=== PATIENT | female | born 1965 | race Caucasian/White ===

== ENCOUNTER → 2017-03-08 | Outpatient (CLI) | payer OTHER ==
[~2017-03-08] MED LIST: ASPIR LOW81 MG PO; ATARAX10 MG/5 ML PO; CLINDAMYCIN HC300 MG PO; FLEXERIL10 MG PO; FLUONAZOLE100 M1 PO; HYDROCODONE BIT1 T11 PO; MOTRIN800 MG PO; NKHM; NYSTATIN1 EAC1 MC; PRELONE15 MG/5 ML PO; VICODIN 5/500 505 MG PO
[2017-03-08 08:30] LABS: HEMATOCRIT 42.8 % (37.0-47.0); HEMOGLOBIN 14.2 g/dl (12.0-16.0); MEAN CELL VOLUME 90.9 fl (81.0-99.0); MEAN CORPUSCULAR HGB 30.1 pg (27.0-31.0); MEAN CORPUSCULAR HGB CONC 33.2 g/dl (33.0-37.0); MEAN PLATELET VOLUME 9.5 fl (9.6-12.3); RED BLOOD COUNT 4.71 10*6/uL (4.10-5.10); RED CELL DISTRI WIDTH 13.3 % (0-14.5); WHITE BLOOD COUNT 7.5 10*3/uL (4.8-10.8)
[2017-03-08 08:55] LABS: ALBUMIN 3.9 gm/dl (3.1-4.5); BUN 21 mg/dl (7-24); CARBON DIOXIDE 25 mmol/L (21-32); CHLORIDE 108 mmol/L (98-107); CHOLESTEROL 165 mg/dL (<200); EST GLOM FILT AFRICAN AMERICAN > 60 ml/min; GLUCOSE 106 mg/dL (65-99); POTASSIUM 3.8 mmol/L (3.5-5.1); SGOT/AST 25 IU/L (3-35); SGPT/ALT 31 U/L (12-78); SODIUM 140 mmol/L (136-145); TRIGLYCERIDES 113 mg/dl (<150); VLDL CHOLESTEROL 23 mg/dL (6-40)
[2017-03-08 08:57] LABS: ALKALINE PHOSPHATASE 146 U/L (45-117); BILIRUBIN, TOTAL 0.4 mg/dl (0.2-1.0); HDL CHOLESTEROL 56 mg/dl (40-60); LDL CHOLESTEROL 86 mg/dL (9-159); TOTAL PROTEIN 7.7 gm/dL (6.4-8.2)
== END | disposition home or self-care (01) ==
LOC: LAB 08:10
PROVIDERS: Family Medicine
DX: E78.00 Pure hypercholesterolemia, unspecified (principal); M25.562 Pain in left knee; R53.83 Other fatigue; R05 Cough; E55.9 Vitamin D deficiency, unspecified; R06.02 Shortness of breath; R07.89 Other chest pain; F17.200 Nicotine dependence, unspecified, uncomplicated; M25.462 Effusion, left knee; M54.9 Dorsalgia, unspecified

== ENCOUNTER 2017-07-13 10:17 | Emergency (ER) | payer SELFPAY ==
[~2017-07-13] VITALS: Ht 175.2 cm; Wt 90.7 kg
[2017-07-13 10:58] LABS: BASO % 0.6 % (0.0-1.0); EOS # 0.2 10*3/uL (0.0-0.4); EOS % 2.4 % (1.0-4.0); HEMATOCRIT 46.3 % (37.0-47.0); HEMOGLOBIN 15.5 g/dl (12.0-16.0); LYMPH # 2.3 10*3/uL (1.3-4.4); MEAN CELL VOLUME 90.4 fl (81.0-99.0); MEAN CORPUSCULAR HGB 30.3 pg (27.0-31.0); MEAN CORPUSCULAR HGB CONC 33.5 g/dl (33.0-37.0); MEAN PLATELET VOLUME 10.1 fl (9.6-12.3); MONO # 0.6 10*3/uL (0.1-1.0); MONO % 8.3 % (3.0-9.0); NEUT % 56.3 % (47.0-73.0); PLATELET COUNT AUTOMATED 116 10*3/uL (130-400); RED BLOOD COUNT 5.12 10*6/uL (4.10-5.10); RED CELL DISTRI WIDTH 13.6 % (0-14.5); WHITE BLOOD COUNT 7.1 10*3/uL (4.8-10.8)
[2017-07-13 11:09] LABS: BUN 16 mg/dl (7-24); CHLORIDE 109 mmol/L (98-107); CREATININE 0.99 mg/dL (0.55-1.02); POTASSIUM 3.9 mmol/L (3.5-5.1); SODIUM 140 mmol/L (136-145)
[2017-07-13] MEDS ORDERED: PRINIVIL10 MG PO (12:54)
== END 2017-07-13 14:50 | disposition home or self-care (01) ==
LOC: EDSTATUS 10:17 → ED 10:17
PROVIDERS: Emergency Medicine
DX: M25.562 Pain in left knee (principal); I10 Essential (primary) hypertension; F17.200 Nicotine dependence, unspecified, uncomplicated; Z98.51 Tubal ligation status; Z90.49 Acquired absence of other specified parts of digestive tract; Z98.890 Other specified postprocedural states; Z79.82 Long term (current) use of aspirin; Z88.1 Allergy status to other antibiotic agents; Z88.8 Allergy status to other drugs, medicaments and biological substances

== ENCOUNTER 2017-07-20 02:43 | Inpatient (IN) | payer SELFPAY ==
[~2017-07-20] VITALS: Ht 175.2 cm; Wt 93.2 kg
[~2017-07-20 02:43] MED LIST changes: +PRINIVIL10 MG PO
[2017-07-20 11:14] VITALS: BP 146/90
--- NOTE | 2017-07-20 11:30 | NUR ---
NATALIA DOS SANTOS CALLED AND AWARE PT IN ROOM AND WILL BE UP TO SEE HER.
[2017-07-20 11:51] VITALS: BP 146/90
--- NOTE | 2017-07-20 11:57 | NUR ---
NATALIA DOS SANTOS IN TO SEE PT.
--- NOTE | 2017-07-20 12:29 | NUR ---
PATIENT IS RESTING COMFORTABLY IN BED. PATIENT WAS PLEASANT AND COOPERATIVE UPON ASSESSMENT. PATIENT DENIES AND SOB OR N/V/D. PATIENT DOES HAVE COMPLAINT OF HEADACHE AND LEFT LEG PAIN. PATIENT GIVEN ACETIMINOPHEN 325MG. WILL CONTINUE TO MONITOR AND REASSESS PATIENTS PAIN. SEE SHIFT ASSESSMENT.
--- NOTE | 2017-07-20 12:38 | NUR ---
PT C/O HEADACHE RATES PAIN 9 ON PAIN SCALE 0-10. MEDICATED WITH NORCO PO PER PRN ORDER, SEE EMAR. CALL LIGHT IN REACH.
[2017-07-20 14:10] LABS: BASO # 0.1 10*3/uL (0.0-0.1); BASO % 0.6 % (0.0-1.0); EOS # 0.2 10*3/uL (0.0-0.4); EOS % 2.1 % (1.0-4.0); HEMATOCRIT 44.1 % (37.0-47.0); HEMOGLOBIN 14.6 g/dl (12.0-16.0); LYMPH # 2.7 10*3/uL (1.3-4.4); LYMPH % 33.5 % (27.0-41.0); MEAN CELL VOLUME 91.9 fl (81.0-99.0); MEAN CORPUSCULAR HGB 30.4 pg (27.0-31.0); MEAN CORPUSCULAR HGB CONC 33.1 g/dl (33.0-37.0); MEAN PLATELET VOLUME 10.2 fl (9.6-12.3); MONO # 0.7 10*3/uL (0.1-1.0); MONO % 8.1 % (3.0-9.0); NEUT # 4.5 10*3/uL (2.3-7.9); NEUT % 55.6 % (47.0-73.0); PLATELET COUNT AUTOMATED 127 10*3/uL (130-400); RED CELL DISTRI WIDTH 13.5 % (0-14.5); WHITE BLOOD COUNT 8.1 10*3/uL (4.8-10.8)
[2017-07-20 14:34] LABS: ALBUMIN 3.7 gm/dl (3.1-4.5); ALKALINE PHOSPHATASE 138 U/L (45-117); BUN 16 mg/dl (7-24); CHLORIDE 107 mmol/L (98-107); CREATININE 0.95 mg/dL (0.55-1.02); MAGNESIUM 2.5 mg/dL (1.5-2.1); PHOSPHOROUS 3.3 mg/dL (2.5-4.9); POTASSIUM 4.4 mmol/L (3.5-5.1); SGOT/AST 26 IU/L (3-35); SGPT/ALT 29 U/L (12-78); SODIUM 139 mmol/L (136-145); TOTAL PROTEIN 7.5 gm/dL (6.4-8.2)
[2017-07-20 14:40] LABS: TROPONIN I < 0.015 ng/ml (<0.045)
[2017-07-20 14:49] LABS: ACT PARTIAL THROMBO TIME 25.8 SECONDS (20.8-31.5)
--- NOTE | 2017-07-20 15:23 | NUR ---
NOTIFIED LANDSCAPE ARCHITECTURE PROFESSOR FOR FOR CONSULT ON PATIENT FOR LEFT KNEE EFFUSION.
--- NOTE | 2017-07-20 15:23 | NUR ---
DANIELLE LESLIE REGARDING CONSULT FOR DR. MORENO, SHE WILL NOTIFY HIM
--- NOTE | 2017-07-20 15:30 | NUR ---
NOT AVAILABLE FOR ECHO. OFF THE FLOOR FOR OTHER OTHER TESTING.
--- NOTE | 2017-07-20 15:52 | NUR ---
PATIENT IS SITTING UP IN BED. PATIENT HAS HAD PAIN IN THE LEFT LEG THAT EXACERBATES WITH MOVEMENT, BUT HAS NO DISCOMFORT OR PAIN AT THIS TIME. PATIENT WAS COOPERATIVE UPON ASSESSMENT. SEE SHIFT ASSESSMENT.
[2017-07-20 16:00] VITALS: BP 155/96
--- NOTE | 2017-07-20 18:48 | NUR ---
PATIENT IS RESTING IN BED. PATIENT IS STILL HAVING A HEADACHE. JOSH WAS IN TO SEE PATIENT AND PERFORMED A KNEE ASPIRATION. PATIENT HAS A PAIN LEVEL OF 6/10 AND IS GIVEN NORCO PER PATIENT REQUEST. WILL CONTINUE TO MONITOR PATIENT AND REASSESS. SEE SHIFT ASSESSMENT. CALL LIGHT IS WITHIN REACH.
[2017-07-20 19:20] VITALS: BP 122/84
--- NOTE | 2017-07-20 19:23 | NUR ---
PT C/O HEADACHE, RATES PAIN 6 ON PAIN SCALE 0-10. MEDICATED WITH NORCO PO PER PRN ORDER, SEE EMAR. BP 122/84. TOLERATED MEDICATIONS. CALL LIGHT IN REACH.
[2017-07-20 20:00] VITALS: BP 147/76
--- NOTE | 2017-07-20 20:02 | NUR ---
Shift chart check completed.
[2017-07-21] VITALS: BP 115/74
[2017-07-21 06:09] LABS: BASO % 0.5 % (0.0-1.0); EOS # 0.2 10*3/uL (0.0-0.4); EOS % 3.3 % (1.0-4.0); HEMATOCRIT 44.5 % (37.0-47.0); HEMOGLOBIN 14.6 g/dl (12.0-16.0); LYMPH % 32.9 % (27.0-41.0); MEAN CELL VOLUME 92.5 fl (81.0-99.0); MEAN CORPUSCULAR HGB 30.4 pg (27.0-31.0); MEAN CORPUSCULAR HGB CONC 32.8 g/dl (33.0-37.0); MEAN PLATELET VOLUME 9.8 fl (9.6-12.3); MONO # 0.6 10*3/uL (0.1-1.0); MONO % 9.3 % (3.0-9.0); NEUT # 3.3 10*3/uL (2.3-7.9); NEUT % 53.7 % (47.0-73.0); PLATELET COUNT AUTOMATED 124 10*3/uL (130-400); RED BLOOD COUNT 4.81 10*6/uL (4.10-5.10); RED CELL DISTRI WIDTH 13.7 % (0-14.5); WHITE BLOOD COUNT 6.1 10*3/uL (4.8-10.8)
--- NOTE | 2017-07-21 06:21 | NUR ---
PRN NORCO GIVEN FOR HEADACHE PAIN RATED 8/10. WILL MONITOR.
[2017-07-21 06:39] LABS: ALBUMIN 3.5 gm/dl (3.1-4.5); ALKALINE PHOSPHATASE 132 U/L (45-117); BUN 16 mg/dl (7-24); CHLORIDE 107 mmol/L (98-107); CHOLESTEROL 182 mg/dL (<200); CREATININE 0.94 mg/dL (0.55-1.02); FREE T4 1.16 ng/dl (0.76-1.46); HDL CHOLESTEROL 45 mg/dl (40-60); LDL CHOLESTEROL 108 mg/dL (9-159); POTASSIUM 4.2 mmol/L (3.5-5.1); SGOT/AST 28 IU/L (3-35); SGPT/ALT 32 U/L (12-78); SODIUM 141 mmol/L (136-145); TOTAL PROTEIN 7.2 gm/dL (6.4-8.2); TRIGLYCERIDES 143 mg/dl (<150); VLDL CHOLESTEROL 29 mg/dL (6-40)
--- NOTE | 2017-07-21 06:52 | NUR ---
NORCO EFFECTIVE. PATIENT IS SATISFIED AND RATES PAIN AT A 3/10.
[2017-07-21 08:00] VITALS: BP 112/74
--- NOTE | 2017-07-21 09:00 | NUR ---
Radiographer in to talk to patient. Patient states lives at home with family. There are few steps in the home. Physician: resident clinic Pharmacy: none Home health services: none Patient's level of ADLs: INDEPENDENT Patient has working utilities: all working DME: none Follow-up physician's appointment after d/c: will be made by hospitalist nurse director upon discharge Does patient want to access PORTAL?: no Discharge plan discussed with patient, patient lives at home with family, she is independent in adls and ambulation, patient states she will be going home and denies any home needs. discussed with her not having any insurance and that someone from [facility] will be calling her and sending a form to fill out for help with the hospital stay. patient stated she would fill it out and send it back, patient also stated that she was fine paying for medications as long as they were only a few dollars. SHARONDA CRONIN
--- NOTE | 2017-07-21 13:10 | NUR ---
PT TRASPORTED FROM FLOOR TO RADIOLOGY FOR AN MRI.
--- NOTE | 2017-07-21 15:50 | NUR ---
PATIENT AMBULATED OFF FLOOR WITH FAMILY.
--- NOTE | 2017-07-21 15:50 | NUR ---
Discharge instructions reviewed with patient/family. Patient receptive and verbalizes understanding. Follow-up care arranged. Written instructions given to patient/family. GOMEZ PEARSON
[2017-07-21 16:00] VITALS: BP 128/80
[2017-07-21] MEDS ORDERED: HYDR25T PO (16:19)
[2017-07-21] MEDS ORDERED: LISINOPRIL20 MG PO (16:19)
== END 2017-07-21 15:50 | disposition home or self-care (01) | DRG 565 ==
LOC: RESCLI 02:43 → 4E 11:02
PROVIDERS: Registered Nurse; ADMIT Internal Medicine
PROC: 0S9D3ZX Drainage of Left Knee Joint, Percutaneous Approach, Diagnostic (ICD-10-PCS; principal; 2017-07-20)
DX: M25.462 Effusion, left knee (principal); I16.1 Hypertensive emergency; I10 Essential (primary) hypertension; Z72.0 Tobacco use; Z90.49 Acquired absence of other specified parts of digestive tract; Z88.1 Allergy status to other antibiotic agents; Z88.8 Allergy status to other drugs, medicaments and biological substances; Z71.6 Tobacco abuse counseling

== ENCOUNTER → 2017-08-10 | Outpatient (CLI) | payer SELFPAY ==
[~2017-08-10] MED LIST changes: +HYDR25T PO; +LISINOPRIL20 MG PO
== END | disposition home or self-care (01) ==
LOC: RESCLI 01:27
DX: I10 Essential (primary) hypertension (principal); M71.22 Synovial cyst of popliteal space [Baker], left knee; M17.12 Unilateral primary osteoarthritis, left knee; F17.200 Nicotine dependence, unspecified, uncomplicated; Z88.1 Allergy status to other antibiotic agents

== ENCOUNTER 2017-09-10 14:35 | Emergency (ER) | payer OTHER ==
[~2017-09-10] VITALS: Ht 177.8 cm; Wt 89.8 kg
[2017-09-10 15:30] LABS: BASO % 0.1 % (0.0-1.0); EOS % 0.1 % (1.0-4.0); HEMATOCRIT 46.4 % (37.0-47.0); LYMPH # 1.8 10*3/uL (1.3-4.4); LYMPH % 12.1 % (27.0-41.0); MEAN CELL VOLUME 87.5 fl (81.0-99.0); MEAN CORPUSCULAR HGB 30.2 pg (27.0-31.0); MEAN CORPUSCULAR HGB CONC 34.5 g/dl (33.0-37.0); MEAN PLATELET VOLUME 10.5 fl (9.6-12.3); MONO # 1.2 10*3/uL (0.1-1.0); MONO % 8.5 % (3.0-9.0); NEUT # 11.4 10*3/uL (2.3-7.9); NEUT % 78.7 % (47.0-73.0); PLATELET COUNT AUTOMATED 170 10*3/uL (130-400); RED CELL DISTRI WIDTH 13.7 % (0-14.5); WHITE BLOOD COUNT 14.5 10*3/uL (4.8-10.8)
[2017-09-10 15:45] LABS: ALBUMIN 4.1 gm/dl (3.1-4.5); CREATININE 1.27 mg/dL (0.55-1.02); POTASSIUM 3.9 mmol/L (3.5-5.1); TOTAL PROTEIN 8.5 gm/dL (6.4-8.2)
[2017-09-10 16:20] LABS: BILIRUBIN NEGATIVE (NEGATIVE); BLOOD TRACE-LYSED (NEGATIVE); CLARITY CLEAR (CLEAR); COLOR YELLOW (YELLOW); GLUCOSE NEGATIVE (NEGATIVE); KETONE NEGATIVE (NEGATIVE); LEUKO ESTERASE NEGATIVE (NEGATIVE); NITRITE NEGATIVE (NEGATIVE); SPECIFIC GRAVITY 1.015 (1.005-1.030); UROBILINOGEN 0.2 E.U./dl (0.2-1.0)
[2017-09-10 16:31] LABS: RBC 0-2 rbc/hpf (0-2)
[2017-09-10 16:32] LABS: BACTERIA TRACE
[2017-09-10] MEDS ORDERED: ZOFRAN4 MG PO (17:03)
[2017-09-10] MEDS ORDERED: PHENERGAN25 M3 PO (17:03)
== END 2017-09-10 17:10 | disposition home or self-care (01) ==
LOC: ED 14:35
PROVIDERS: Nurse Practitioner Family
DX: K52.9 Noninfective gastroenteritis and colitis, unspecified (principal); N28.9 Disorder of kidney and ureter, unspecified; I10 Essential (primary) hypertension; F17.200 Nicotine dependence, unspecified, uncomplicated; Z90.710 Acquired absence of both cervix and uterus; Z98.890 Other specified postprocedural states; Z98.51 Tubal ligation status; Z90.49 Acquired absence of other specified parts of digestive tract; Z79.899 Other long term (current) drug therapy; Z88.1 Allergy status to other antibiotic agents; Z88.8 Allergy status to other drugs, medicaments and biological substances

== ENCOUNTER → 2017-10-25 | Outpatient (CLI) | payer OTHER ==
[~2017-10-25] MED LIST changes: +PHENERGAN25 M3 PO; +ZOFRAN4 MG PO
== END | disposition home or self-care (01) ==
LOC: ORTHO 02:05
DX: M25.562 Pain in left knee (principal)

== ENCOUNTER → 2017-11-24 | Day surgery (SDC) | payer OTHER ==
[~2017-11-24] VITALS: Ht 175.2 cm; Wt 89.8 kg
[~2017-11-24] MED LIST changes: +Zestril,Prinivi40 MG PO
[2017-11-24 12:00] VITALS: BP 159/95
[2017-11-24 13:10] VITALS: BP 125/65
[2017-11-24 13:25] VITALS: BP 133/74
[2017-11-24 13:40] VITALS: BP 147/79
[2017-11-24 14:03] VITALS: BP 111/47
[2017-11-24 14:15] VITALS: BP 101/50
== END | disposition home or self-care (01) ==
LOC: SDC 11-19 01:58
DX: I35.1 Nonrheumatic aortic (valve) insufficiency (principal); I10 Essential (primary) hypertension; Z90.49 Acquired absence of other specified parts of digestive tract; Z90.710 Acquired absence of both cervix and uterus; Z98.890 Other specified postprocedural states; F17.210 Nicotine dependence, cigarettes, uncomplicated; Z88.8 Allergy status to other drugs, medicaments and biological substances

== ENCOUNTER → 2018-02-15 | Outpatient (CLI) | payer OTHER ==
[~2018-02-15] MED LIST changes: +NORVASC5 MG PO; +TOPROL XL100 MG PO
--- NOTE | ~2018-02-15 | ST ---
[place], [place] EXERCISE STRESS TEST REPORT NAME: BEATRIZ CURIEL UNIT #: [id number] ROOM: DOCTOR: TERRIE POTTER MD BIRTHDATE: [birth year] DOS: 02/15/2018 PHARMACOLOGIC STRESS TEST INDICATIONS: Precordial chest pain. PROCEDURE: The patient was given a rapid infusion of regadenoson 0.4 mg intravenously followed by a saline flush. She developed severe dyspnea shortly after the infusion. She denied any headache or nausea. She did have a normal heart rate response to the adenosine. Her resting heart rate of 83 genaro to 120. Resting blood pressure of 150/80 genaro to 168/90. She did not have any diagnostic ST or T-wave changes with the infusion. Forty seconds after the infusion of regadenoson, she was given radionuclide intravenously. IMPRESSION: 1. Well tolerated infusion of regadenoson. 2. Radionuclide injected. Please see the separate imaging report for further details of the patient's stress test results. TERRIE POTTER MD CM:STRESS:EXERCISE STRESS TEST REPORT [id number] TERRIE POTTER MD
== END | disposition home or self-care (01) ==
LOC: CARD 01:41
DX: I10 Essential (primary) hypertension (principal); R07.2 Precordial pain; I35.1 Nonrheumatic aortic (valve) insufficiency

== ENCOUNTER 2018-12-05 12:30 | Emergency (ER) | payer SELFPAY ==
[~2018-12-05] VITALS: Ht 175.2 cm; Wt 88.5 kg
== END 2018-12-05 14:09 | disposition home or self-care (01) ==
LOC: ED 12:30
DX: S89.92XA Unspecified injury of left lower leg, initial encounter (principal); I10 Essential (primary) hypertension; F17.210 Nicotine dependence, cigarettes, uncomplicated; Z88.1 Allergy status to other antibiotic agents; Z79.899 Other long term (current) drug therapy; X50.1XXA Overexertion from prolonged static or awkward postures, initial encounter; Y93.89 Activity, other specified; Y92.89 Other specified places as the place of occurrence of the external cause; Y99.8 Other external cause status

== ENCOUNTER 2018-12-22 15:37 | Emergency (ER) | payer SELFPAY ==
[~2018-12-22] VITALS: Ht 175.2 cm; Wt 88.5 kg
== END 2018-12-22 16:14 | disposition home or self-care (01) ==
LOC: ED 15:37
DX: M25.562 Pain in left knee (principal); M79.89 Other specified soft tissue disorders; I10 Essential (primary) hypertension; Z53.21 Procedure and treatment not carried out due to patient leaving prior to being seen by health care provider

== ENCOUNTER → 2018-12-22 | Outpatient (CLI) | payer SELFPAY | END | disposition home or self-care (01) | LOC: RESCLI 03:27 | DX: I48.0 Paroxysmal atrial fibrillation (principal); L30.4 Erythema intertrigo; F41.9 Anxiety disorder, unspecified; E11.9 Type 2 diabetes mellitus without complications; I47.1 Supraventricular tachycardia; I10 Essential (primary) hypertension; K21.9 Gastro-esophageal reflux disease without esophagitis; E55.9 Vitamin D deficiency, unspecified; Z98.890 Other specified postprocedural states; Z86.79 Personal history of other diseases of the circulatory system; Z79.899 Other long term (current) drug therapy; Z79.82 Long term (current) use of aspirin; Z88.8 Allergy status to other drugs, medicaments and biological substances ==

== ENCOUNTER → 2020-04-02 | Outpatient (CLI) | payer OTHER | END | disposition home or self-care (01) | LOC: CARD 12:46 | DX: I35.1 Nonrheumatic aortic (valve) insufficiency (principal); I70.0 Atherosclerosis of aorta ==

== ENCOUNTER → 2020-08-02 | Outpatient (CLI) | payer OTHER ==
[~2020-08-02] MED LIST changes: +LISINOPRIL40 MG PO; +TOPROL XL25 MG PO
[2020-08-02 16:31] LABS: BUN 34 mg/dl (7-24); CHLORIDE 110 mmol/L (98-107); CREATININE 0.97 mg/dL (0.55-1.02); POTASSIUM 4.3 mmol/L (3.5-5.1); SODIUM 139 mmol/L (136-145)
== END | disposition home or self-care (01) ==
LOC: LAB 14:06
PROVIDERS: ATTEND Orthopaedic Surgery
DX: I51.7 Cardiomegaly (principal); G56.22 Lesion of ulnar nerve, left upper limb; G56.02 Carpal tunnel syndrome, left upper limb

== ENCOUNTER → 2020-08-05 | Outpatient (CLI) | payer OTHER | END | disposition home or self-care (01) | LOC: COVID19 00:49 | PROVIDERS: ATTEND Orthopaedic Surgery | DX: Z01.812 Encounter for preprocedural laboratory examination (principal); Z20.828 Contact with and (suspected) exposure to other viral communicable diseases ==

== ENCOUNTER → 2020-08-08 | Day surgery (SDC) | payer OTHER ==
[2020-08-02 14:22] VITALS: BP 209/89
[2020-08-08] VITALS (7 sets, daily range): BP systolic 108–208; BP diastolic 85–94
[~2020-08-08] VITALS: Ht 175.2 cm; Wt 86.2 kg
== END ==
LOC: SDC 08-02 14:00
PROVIDERS: ATTEND Orthopaedic Surgery
DX: G56.03 Carpal tunnel syndrome, bilateral upper limbs (principal); G56.23 Lesion of ulnar nerve, bilateral upper limbs; I10 Essential (primary) hypertension; F17.200 Nicotine dependence, unspecified, uncomplicated; G43.909 Migraine, unspecified, not intractable, without status migrainosus; Z90.49 Acquired absence of other specified parts of digestive tract; Z90.710 Acquired absence of both cervix and uterus; Z98.51 Tubal ligation status; F17.210 Nicotine dependence, cigarettes, uncomplicated; Z88.1 Allergy status to other antibiotic agents; Z88.8 Allergy status to other drugs, medicaments and biological substances; Z79.899 Other long term (current) drug therapy

== ENCOUNTER → 2020-12-16 | Outpatient (CLI) | payer OTHER ==
[~2020-12-16] MED LIST changes: +HYDROCODONE-AC1 EAC1 PO
[2020-12-16 11:59] LABS: BUN 18 mg/dl (7-24); CHLORIDE 111 mmol/L (98-107); CREATININE 0.96 mg/dL (0.55-1.02); POTASSIUM 3.7 mmol/L (3.5-5.1); SODIUM 141 mmol/L (136-145)
== END | disposition home or self-care (01) ==
LOC: COVID19 11:09 → LAB 11:09
PROVIDERS: ATTEND Orthopaedic Surgery
DX: Z01.812 Encounter for preprocedural laboratory examination (principal); G56.01 Carpal tunnel syndrome, right upper limb; G56.21 Lesion of ulnar nerve, right upper limb; Z20.822 Contact with and (suspected) exposure to COVID-19

== ENCOUNTER → 2020-12-19 | Day surgery (SDC) | payer OTHER ==
[2020-12-19 07:15] VITALS: BP 188/101
[2020-12-19 09:32] VITALS: BP 139/65
[2020-12-19 09:47] VITALS: BP 136/60
[2020-12-19 10:02] VITALS: BP 125/68
== END ==
LOC: SDC 12-16 11:00
PROVIDERS: ATTEND Orthopaedic Surgery
DX: G56.01 Carpal tunnel syndrome, right upper limb (principal); G56.21 Lesion of ulnar nerve, right upper limb; I10 Essential (primary) hypertension; G43.909 Migraine, unspecified, not intractable, without status migrainosus; F17.210 Nicotine dependence, cigarettes, uncomplicated; Z90.49 Acquired absence of other specified parts of digestive tract; Z98.890 Other specified postprocedural states; Z79.899 Other long term (current) drug therapy

== ENCOUNTER 2021-06-04 17:17 | Inpatient (IN) | payer OTHER ==
[2021-06-04 19:00] LABS: ALBUMIN 3.6 gm/dl (3.1-4.5); ALKALINE PHOSPHATASE 153 U/L (45-117); BUN 18 mg/dl (7-24); CHLORIDE 108 mmol/L (98-107); CREATININE 1.08 mg/dL (0.55-1.02); POTASSIUM 3.7 mmol/L (3.5-5.1); SGOT/AST 22 IU/L (3-35); SGPT/ALT 23 U/L (12-78); SODIUM 139 mmol/L (136-145); TOTAL PROTEIN 8.1 gm/dL (6.4-8.2); TROPONIN I 0.017 ng/ml (<0.045)
[2021-06-04 19:20] LABS: BASO # 0.1 10*3/uL (0.0-0.1); BASO % 0.6 % (0.0-1.0); EOS # 0.2 10*3/uL (0.0-0.4); EOS % 2.7 % (1.0-4.0); HEMATOCRIT 48.3 % (37.0-47.0); LYMPH % 23.9 % (27.0-41.0); MEAN CELL VOLUME 85.6 fl (81.0-99.0); MEAN CORPUSCULAR HGB CONC 32.7 g/dl (33.0-37.0); MEAN PLATELET VOLUME 10.8 fl (9.6-12.3); MONO # 0.6 10*3/uL (0.1-1.0); MONO % 7.8 % (3.0-9.0); NEUT # 5.3 10*3/uL (2.3-7.9); NEUT % 64.8 % (47.0-73.0); PLATELET COUNT AUTOMATED 92 10*3/uL (130-400); RED BLOOD COUNT 5.64 10*6/uL (4.10-5.10); RED CELL DISTRI WIDTH 14.4 % (0-14.5); WHITE BLOOD COUNT 8.2 10*3/uL (4.8-10.8)
[2021-06-05] VITALS (14 sets, daily range): BP systolic 143–193; BP diastolic 90–115
[2021-06-05 04:16] LABS: BASO % 0.6 % (0.0-1.0); EOS # 0.3 10*3/uL (0.0-0.4); EOS % 4.3 % (1.0-4.0); HEMATOCRIT 44.3 % (37.0-47.0); LYMPH # 2.1 10*3/uL (1.3-4.4); LYMPH % 31.2 % (27.0-41.0); MEAN CELL VOLUME 86.7 fl (81.0-99.0); MEAN CORPUSCULAR HGB CONC 32.3 g/dl (33.0-37.0); MEAN PLATELET VOLUME 9.9 fl (9.6-12.3); MONO # 0.7 10*3/uL (0.1-1.0); NEUT # 3.6 10*3/uL (2.3-7.9); NEUT % 53.8 % (47.0-73.0); PLATELET COUNT AUTOMATED 96 10*3/uL (130-400); RED BLOOD COUNT 5.11 10*6/uL (4.10-5.10); RED CELL DISTRI WIDTH 14.5 % (0-14.5); WHITE BLOOD COUNT 6.7 10*3/uL (4.8-10.8)
[2021-06-05 04:26] LABS: ACT PARTIAL THROMBO TIME 29.7 SECONDS (20.0-32.1)
[2021-06-05 04:31] LABS: ALKALINE PHOSPHATASE 140 U/L (45-117); BUN 17 mg/dl (7-24); CHLORIDE 111 mmol/L (98-107); CHOLESTEROL 150 mg/dL (<200); CREATININE 0.95 mg/dL (0.55-1.02); LDL CHOLESTEROL 77 mg/dL (9-159); POTASSIUM 3.8 mmol/L (3.5-5.1); SGOT/AST 18 IU/L (3-35); SGPT/ALT 23 U/L (12-78); SODIUM 140 mmol/L (136-145); TOTAL PROTEIN 7.3 gm/dL (6.4-8.2); TRIGLYCERIDES 134 mg/dl (<150)
== END 2021-06-06 00:16 | disposition left against medical advice (07) | DRG 45 ==
LOC: ED 17:17 → EDHOLD 22:34
PROVIDERS: Hospitalist; Physician Assistant; ADMIT Internal Medicine; ATTEND Internal Medicine
DX: I63.9 Cerebral infarction, unspecified (principal); I16.1 Hypertensive emergency; N17.0 Acute kidney failure with tubular necrosis; F17.210 Nicotine dependence, cigarettes, uncomplicated; I10 Essential (primary) hypertension; Z90.49 Acquired absence of other specified parts of digestive tract; Z90.710 Acquired absence of both cervix and uterus; Z80.3 Family history of malignant neoplasm of breast; Z88.8 Allergy status to other drugs, medicaments and biological substances; Z88.7 Allergy status to serum and vaccine; Z79.1 Long term (current) use of non-steroidal anti-inflammatories (NSAID); Z79.899 Other long term (current) drug therapy; Z71.3 Dietary counseling and surveillance; Z53.29 Procedure and treatment not carried out because of patient's decision for other reasons

== ENCOUNTER 2022-02-19 11:35 | Emergency (ER) | payer OTHER ==
[~2022-02-19] VITALS: Ht 175.2 cm; Wt 83.9 kg
== END 2022-02-19 16:21 | disposition left against medical advice (07) ==
LOC: ED 11:35
DX: L55.9 Sunburn, unspecified (principal); R22.42 Localized swelling, mass and lump, left lower limb; M25.562 Pain in left knee; Z53.21 Procedure and treatment not carried out due to patient leaving prior to being seen by health care provider

== ENCOUNTER → 2022-06-15 | Outpatient (CLI) | payer OTHER | END | disposition home or self-care (01) | LOC: RAD 12:44 | PROVIDERS: ATTEND Orthopaedic Surgery | DX: M17.12 Unilateral primary osteoarthritis, left knee (principal) ==

== ENCOUNTER → 2022-09-04 | Outpatient (CLI) | payer OTHER ==
[2022-09-04 11:21] LABS: HEMATOCRIT 46.9 % (37.0-47.0); MEAN CORPUSCULAR HGB 28.8 pg (27.0-31.0); MEAN PLATELET VOLUME 10.5 fl (9.6-12.3); RED BLOOD COUNT 5.21 10*6/uL (4.10-5.10)
[2022-09-04 11:47] LABS: ALKALINE PHOSPHATASE 152 U/L (46-116); BUN 20 mg/dl (9-23); CHLORIDE 107 mmol/L (98-107); CHOLESTEROL 111 mg/dL (<200); CPK 46 U/L (34-171); CREATININE 0.97 mg/dL (0.55-1.02); LDL CHOLESTEROL 47 mg/dL (9-159); POTASSIUM 4.8 mmol/L (3.4-5.1); SGPT/ALT 20 U/L (10-49); SODIUM 137 mmol/L (136-145); TRIGLYCERIDES 90 mg/dl (<150)
[2022-09-04 11:48] LABS: TOTAL PROTEIN 7.3 gm/dL (6.0-8.0)
== END | disposition home or self-care (01) ==
LOC: LAB 10:59
PROVIDERS: ATTEND Family Medicine
DX: E78.00 Pure hypercholesterolemia, unspecified (principal); I63.9 Cerebral infarction, unspecified

== ENCOUNTER → 2022-09-15 | Outpatient (CLI) | payer OTHER | END | disposition home or self-care (01) | LOC: CARD 08:07 | PROVIDERS: ATTEND Internal Medicine Cardiovascular Disease | DX: Z86.73 Personal history of transient ischemic attack (TIA), and cerebral infarction without residual deficits (principal) ==

== ENCOUNTER → 2022-12-03 | Outpatient (CLI) | payer OTHER | END | disposition home or self-care (01) | LOC: MRI 00:21 | PROVIDERS: ATTEND Orthopaedic Surgery | DX: S83.512A Sprain of anterior cruciate ligament of left knee, initial encounter (principal); S83.282A Other tear of lateral meniscus, current injury, left knee, initial encounter; S83.412A Sprain of medial collateral ligament of left knee, initial encounter; S83.212A Bucket-handle tear of medial meniscus, current injury, left knee, initial encounter; R60.0 Localized edema; M25.462 Effusion, left knee; M25.762 Osteophyte, left knee; I86.8 Varicose veins of other specified sites; M76.52 Patellar tendinitis, left knee; M23.042 Cystic meniscus, anterior horn of lateral meniscus, left knee; M17.12 Unilateral primary osteoarthritis, left knee; X58.XXXA Exposure to other specified factors, initial encounter; Y93.89 Activity, other specified; Y92.89 Other specified places as the place of occurrence of the external cause; Y99.8 Other external cause status ==

== ENCOUNTER → 2022-12-25 | Outpatient (CLI) | payer OTHER | END | disposition home or self-care (01) | LOC: RESCLI 01:10 | PROVIDERS: ATTEND Internal Medicine | DX: I10 Essential (primary) hypertension (principal); I63.9 Cerebral infarction, unspecified; E55.9 Vitamin D deficiency, unspecified; R53.83 Other fatigue; Z87.891 Personal history of nicotine dependence; Z82.49 Family history of ischemic heart disease and other diseases of the circulatory system; Z88.8 Allergy status to other drugs, medicaments and biological substances; Z79.02 Long term (current) use of antithrombotics/antiplatelets; Z90.49 Acquired absence of other specified parts of digestive tract; Z90.710 Acquired absence of both cervix and uterus; Z98.890 Other specified postprocedural states; Z79.899 Other long term (current) drug therapy ==